=== PATIENT | female | born 1960 | race Caucasian/White ===

== ENCOUNTER 2019-02-22 14:19 | Emergency (ER) | payer OTHER ==
[2019-02-22 14:33] VITALS: BMI 32.1
[2019-02-22] MEDS ORDERED: SODIUM CHLORIDE 0.9% 1000 ML INFUS.BAG IV ONE (15:12)
[2019-02-22] MEDS ORDERED: MECLIZINE HCL 25 MG TABLET (FP) PO ONE (15:12)
[2019-02-22] MEDS ORDERED: METOCLOPRAMIDE HCL INJECTION 10 MG/2 ML VIAL IVPB ONE (15:12)
[2019-02-22] MEDS ORDERED: MECLIZINE HCL 25 MG TABLET (FP) ONE (15:20)
[2019-02-22] MEDS ORDERED: METOCLOPRAMIDE HCL INJECTION 10 MG/2 ML VIAL ONE (15:20)
[2019-02-22 15:47] LABS: BASO % 1.5 % (0-2.0); HEMATOCRIT 39.1 % (32.4-45.2); LYMPH % 14.6 % (8-40); MCH 30.6 pg (25.7-33.7); MCHC 33.2 g/dl (32.0-36.0); MEAN CELL VOLUME 92.1 fl (80-96); MONO % 5.2 % (3.8-10.2); NEUT % 77.7 % (42.8-82.8); PLATELET COUNT 296 K/MM3 (134-434); RBC 4.24 M/mm3 (3.60-5.2); RDW 12.8 % (11.6-15.6); WHITE BLOOD COUNT 9.5 K/mm3 (4.0-10.8)
[2019-02-22 16:53] LABS: ALBUMIN 4.1 g/dl (3.4-5.0); BILIRUBIN,TOTAL 0.5 mg/dl (0.2-1); CALCIUM 9.1 mg/dl (8.5-10); CREATININE 0.6 mg/dl (0.55-1.3); TOT PROT 6.6 g/dl (6.4-8.2)
[2019-02-22 18:00] VITALS: BP 98/65; PULSE 70
--- NOTE | 2019-02-22 18:22 | PDOC ---
Documentation entered by Nuria Villalobos SCRIBE, acting as scribe for Soha Ho MD. Soha Ho MD: This documentation has been prepared by the Griselda owen Sammi, SCRIBE, under my direction and personally reviewed by me in its entirety. I confirm that the documentation accurately reflects all work, treatment, procedures, and medical decision making performed by me. History of Present Illness - General Chief Complaint: Nausea/Vomiting Stated Complaint: NAUSEA DIZZY History Source: Patient Exam Limitations: No Limitations - History of Present Illness Initial Comments: 02/22/19 15:33 The patient is a 58 year old female who presents to the emergency department via EMS for evaluation of dizziness, nausea and vomiting. The patient states around 10:30 this morning she was experiencing a gradually occurring 5/10 bitemporal headache so she ate a muffin and the headache began to subside 15 min later. 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 She states she ate lunch which only exacerbated her symptoms and began to experience room spinning dizziness with associated nausea and NBNB vomiting x4. A nurse carin [facility] evaluated the patient , taking her blood pressure and blood sugar which were both reportedly normal. She notes the dizziness is worse with movement of her head to the left. Denies photophobia. Denies fever or chills. Denies recent ear infections. Denies recent travel. Denies focal weakness or numbness. Denies chest pain and shortness of breath. Denies dysuria, frequency, urgency and hematuria. Medical history: none reported Surgical history: partial mastectomy, appendectomy, sinus surgery Allergies: NKDA Past History - Past Medical History Allergies/Adverse Reactions: Allergies Allergy/AdvReac Type Severity Reaction Status Date / Time bacitracin Allergy Intermediate Verified 02/22/19 14:24 [From Neosporin ([id number])] cefaclor [From Ceclor] Allergy Intermediate Verified 02/22/19 14:22 cephalexin [From Keflex] Allergy Intermediate Verified 02/22/19 14:23 erythromycin base Allergy Intermediate Verified 02/22/19 14:23 Horse/Equine Containing Allergy Intermediate Verified 02/22/19 14:21 Products loracarbef [From Lorabid] Allergy Intermediate Verified 02/22/19 14:22 neomycin Allergy Intermediate Verified 02/22/19 14:24 [From Neosporin ([id number])] polymyxin B Allergy Intermediate Verified 02/22/19 14:24 [From Neosporin ([id number])] vancomycin Allergy Intermediate Verified 02/22/19 14:23 polyethylene glycol 3350 AdvReac Severe Difficulty Verified 02/22/19 14:24 [From Miralax] Breathing Home Medications: Ambulatory Orders Meclizine HCl 25 mg PO BID PRN #10 tablet 02/22/19 Review of Systems - Review of Systems Comments:: 02/22/19 15:33 GENERAL/CONSTITUTIONAL: (+)dizziness and headache. No fever or chills. No weakness. HEAD, EYES, EARS, NOSE AND THROAT: No change in vision. No ear pain or discharge. No sore throat. GASTROINTESTINAL: (+)nausea and vomiting. No diarrhea or constipation. GENITOURINARY: No dysuria, frequency, or change in urination. CARDIOVASCULAR: No chest pain or shortness of breath. RESPIRATORY: No cough, wheezing, or hemoptysis. MUSCULOSKELETAL: No joint or muscle swelling or pain. No neck or back pain. SKIN: No rash NEUROLOGIC: No vertigo, loss of consciousness, or change in strength/sensation. *Physical Exam - Vital Signs Last Vital Signs Temp Pulse Resp BP Pulse Ox 70 16 98/65 99 02/22/19 18:00 02/22/19 18:00 02/22/19 18:00 02/22/19 18:00 - Physical Exam Comments: 02/22/19 15:33 GENERAL: Awake, alert, and fully oriented, in no acute distress. Well appearing HEAD: No signs of trauma EYES: PERRLA, EOMI, sclera anicteric, conjunctiva clear. +extinguishing horizontal nystagmus, 3-4 beats with left gaze ENT: Oropharynx clear without exudates. Moist mucosa NECK: Normal ROM, supple, no lymphadenopathy, JVD, or masses LUNGS: Breath sounds equal, clear to auscultation bilaterally. No wheezes, and no crackles HEART: Regular rate and rhythm, normal S1 and S2, no murmurs, rubs or gallops ABDOMEN: Soft, nontender, normoactive bowel sounds. No guarding, no rebound. No masses EXTREMITIES: Normal range of motion, no edema. No clubbing or cyanosis. No cords , erythema, or tenderness NEUROLOGICAL: Normal speech, cranial nerves intact, negative pronator drift, 5/ 5 strength in all 4 extremities, normal sensation to light touch in all 4 extremities, normal cerebellar exam with normal FNF, normal gait. SKIN: Warm, Dry, normal turgor, no rashes or lesions noted. Heart Score/ECG Review #1 02/22/19 18:15 EKG read and int by me: NSR, rate 71. Normal axis and intervals. No FOREST. Isolated TWI in III ED Treatment Course - LABORATORY CBC & Chemistry Diagram: 02/22/19 15:20 02/22/19 16:38 - ADDITIONAL ORDERS Additional order review: Laboratory Results 02/22/19 02/22/19 16:38 16:38 Sodium 139 Potassium 4.0 Chloride 106 Carbon Dioxide 26 Anion Gap 7 L BUN 14.0 Creatinine 0.6 Est GFR (CKD-EPI)AfAm 117.27 Est GFR (CKD-EPI)NonAf 101.18 Random Glucose 115 H Calcium 9.1 Total Bilirubin 0.5 AST 21 ALT 20 Alkaline Phosphatase 65 Troponin I < 0.03 Total Protein 6.6 Albumin 4.1 02/22/19 15:20 RBC 4.24 MCV 92.1 MCHC 33.2 RDW 12.8 MPV 9.0 Neutrophils % 77.7 Lymphocytes % 14.6 Monocytes % 5.2 Eosinophils % 1.0 Basophils % 1.5 - RADIOLOGY Radiology Studies Ordered: Category Date Time Status HEAD CT WITHOUT CONTRAST [CT] Stat CT Scan 02/22/19 15:11 Completed - Medications Given in the ED: ED Medications Discontinued Medications Generic Name Dose Route Start Last Admin Trade Name Freq PRN Reason Stop Dose Admin Meclizine HCl 25 mg 02/22/19 15:12 02/22/19 15:30 Antivert - PO 02/22/19 15:13 25 mg ONCE ONE Administration Metoclopramide HCl 10 mg 02/22/19 15:12 02/22/19 15:39 Reglan Injection - IVPB 02/22/19 15:13 10 mg ONCE ONE Administration Sodium Chloride 500 ml 02/22/19 15:12 02/22/19 15:35 Normal Saline - IV 09/11/19 15:13 500 ml ONCE ONE Administration Medical Decision Making - Medical Decision Making 02/22/19 18:16 58yo F with no PMH presents to the ED with resolved headache, followed by episode of room spinning dizziness a/w nausea and vomiting Vitals wnl Exam with extinguishing nystagmus with L horizontal gaze, but no other focal findings Labs wnl CTH negative Symptoms have completely resolved with meclizine, reglan, fluids Pt is well appearing, ambulating in ED with normal gait. Able to walk in tandem In absence of headache, focal findings, lack of stroke risk factors, much less likely central etiology Likely BPPV. Will refer pt to ENT and neurology for further evaluation I discussed the physical exam findings, ancillary test results and final diagnoses with the patient. I answered all of the patient's questions. The patient was satisfied with the care received and felt comfortable with the discharge plan and treatment plan. The patient will call their primary care physician within 24 hours to arrange follow-up and will return to the Emergency Department with any new, persistent or worsening symptoms. *DC/Admit/Observation/Transfer Diagnosis at time of Disposition: Vertigo, Headache, Vomiting - Discharge Dispostion Disposition: HOME Decision to Admit order: No - Prescriptions Prescriptions: Meclizine HCl 25 mg PO BID PRN #10 tablet PRN Reason: vertigo - Referrals Referrals: Derek Wolf MD [Staff Physician] - Randall Rosario MD [Staff Physician] - - Patient Instructions Printed Discharge Instructions: DI for Vertigo Additional Instructions: Take meclizine 25mg as needed if you experience any room spinning dizziness Follow up with the neurologist Dr. Wolf and ENT Dr. Rosario within 1 week for further evaluation. A referral has been included. REturn to the emergency department if you have any new, worsening or concerning symptoms. - Post Discharge Activity - Attestations Physician Attestion: 02/22/19 18:22 I, Dr. Soha Ho MD, attest that this document has been prepared under my direction and personally reviewed by me in its entirety. I further attest, that it accurately reflects all work, treatment, procedures and medical decision -making performed by me.
--- NOTE | 2019-02-23 15:31 | EKG ---
Test Reason : Blood Pressure : / mmHG Vent. Rate : 071 BPM Atrial Rate : 071 BPM P-R Int : 146 ms QRS Dur : 088 ms QT Int : 398 ms P-R-T Axes : 057 -10 018 degrees QTc Int : 432 ms NORMAL SINUS RHYTHM NORMAL ECG NO PREVIOUS ECGS AVAILABLE Confirmed by SUE STEVE, JULIETA ([id number]) on 02/23/2019 3:31:17 PM Referred By: MD ALBRECHT Confirmed By:JULIETA ROGERS MD
== END 2019-02-22 18:32 | disposition home or self-care (01) ==
LOC: FER 14:19
PROC: 3E033GC Introduction of Other Therapeutic Substance into Peripheral Vein, Percutaneous Approach (ICD-10-PCS; principal; 2019-02-22)
PROC: 3E0337Z Introduction of Electrolytic and Water Balance Substance into Peripheral Vein, Percutaneous Approach (ICD-10-PCS; 2019-02-22)
DX: R42 Dizziness and giddiness (principal); R51 Headache; R11.10 Vomiting, unspecified
CPT/HCPCS: 36415; 70450-TC; 80053; 84484; 85025; 93005; 99283-25; J7030